=== PATIENT | female | born 1965 | race Caucasian/White ===

== ENCOUNTER 2021-01-10 14:20 | Outpatient (CLI) | payer OTHER ==
[2021-01-10 18:56] LABS: H. PYLORIS ANTIGEN STL NEGATIVE (Negative)
[2021-01-10 18:57] LABS: FECAL OCCULT BLOOD (FIT) POSITIVE (NEGATIVE)
== END 2021-01-10 23:59 | disposition home or self-care (01) ==
LOC: LAB.N 14:20
PROVIDERS: ATTEND Family Medicine
DX: R19.7 Diarrhea, unspecified (principal); Z20.822 Contact with and (suspected) exposure to COVID-19
CPT/HCPCS: 81599; 82274; 83993; 87045; 87046; 87177; 87209; 87329; 87338; 87427; 87493

== ENCOUNTER 2021-01-11 11:16 | Emergency (ER) | payer OTHER ==
--- NOTE | 2021-01-11 12:50 | ED Physician Documentation ---
History of Present Illness - Stated complaint Stated Complaint: ABD PX - Chief complaint Chief Complaint: Abd Pain - Additonal information Additional information: 55-year-old female presents the emergency department for evaluation of 6 days d iarrhea. She reports that it began suddenly. She reports extensive abdominal cramping. Some nausea but she has not had any vomiting. None of the diarrhea has been bloody or melanic. She reports that anytime she eats anything even simple rice or banana or drinks water she goes to the bathroom to have watery stool within minutes. She did take a dose of Imodium 3 days ago and reported that she went about 18 hours without diarrhea but she had fairly extensive abdominal cramps during that episode as well as body aches. She is not on a well. Denies similar in the family at home. No recent travel or sick contacts. No antibiotic use. She did go to walk-in clinic yesterday for the symptoms the did H pylori and C. difficile testing which was negative. The stool guaiac was however positive. No history of colonoscopy. Review of Systems Constitutional: denies: Fever, Chills Eyes: reports: Reviewed and negative Ears: reports: Reviewed and negative Nose: reports: Reviewed and negative Throat: reports: Reviewed and negative Cardiac: reports: Reviewed and negative Respiratory: reports: Reviewed and negative GI: reports: Abdominal Pain, Nausea, Diarrhea, Hematemesis. denies: Vomiting, Bloody / black stool : reports: Reviewed and negative Skin: reports: Reviewed and negative Musculoskeletal: reports: Reviewed and negative PD PAST MEDICAL HISTORY - Present Medications Home Medications: Ambulatory Orders Medication Instructions Recorded Confirmed Amox/Clav 875/125 [Augmentin] 1 each PO Q12H #14 tablet 01/11/21 Lactobacillus Acidophilus 2 each PO DAILY #60 01/11/21 [Acidophilus Lactobacilli] - Allergies Allergies/Adverse Reactions: Allergies Allergy/AdvReac Type Severity Reaction Status Date / Time No Known Drug Allergies Allergy Verified 01/11/21 11:24 PD ED PE EXPANDED - General General: Alert, No acute distress - Cardiac Cardiac: Regular Rate, Radial strong equal, Cap refill < 2 sec - Respiratory Respiratory: Clear to ausultation scottie. No: Distress, Labored - Abdomen Abdomen: Hyperactive BS (X 4 quadrants). No: Tender to palpation - Derm Derm: Normal color, Warm and dry - Extremities Extremities: Normal. No: Deformity, Tenderness - Neuro Neuro: Alert and Oriented X 3, CNII-XII intact - GCS Eye Opening: Spontaneous Motor: Obeys Commands Verbal: Oriented Total: 15 Results - Vitals Vitals: Vital Signs - 24 hr 01/11/21 01/11/21 01/11/21 11:19 12:56 14:00 Temperature 36.5 C 36.5 C 36.6 C Heart Rate 87 72 75 Respiratory 16 16 16 Rate Blood Pressure 137/83 H 150/90 H 131/77 H O2 Saturation 97 98 98 Oxygen O2 Source Room air - Labs Labs: Laboratory Tests 01/11/21 01/11/21 01/11/21 12:45 12:45 14:46 WBC 6.3 RBC 4.69 Hgb 14.7 Hct 44.3 MCV 94.5 MCH 31.3 H MCHC 33.2 RDW 12.3 Plt Count 354 MPV 9.7 Neut # (Auto) 3.3 Lymph # (Auto) 2.1 [place] # (Auto) 0.7 Eos # (Auto) 0.1 Baso # (Auto) 0.0 Absolute Nucleated RBC 0.00 Nucleated RBC % 0.0 Sodium 136 Potassium 3.8 Chloride 99 L Carbon Dioxide 25 Anion Gap 12.0 BUN 14 Creatinine 0.6 Estimated GFR (MDRD) 103 Glucose 94 Calcium 9.1 Total Bilirubin 1.4 H AST 19 ALT 14 Alkaline Phosphatase 52 Total Protein 8.1 Albumin 4.7 Globulin 3.4 Albumin/Globulin Ratio 1.4 Lipase 23 Urine Color YELLOW Urine Clarity CLEAR Urine pH 5.5 Ur Specific [place] <=1.005 Urine Protein NEGATIVE Urine Glucose (UA) NEGATIVE Urine Ketones TRACE Urine Occult Blood TRACE-INTA Urine Nitrite NEGATIVE Urine Bilirubin NEGATIVE Urine Urobilinogen 0.2 (NORMAL) Ur Leukocyte Esterase NEGATIVE Ur Microscopic Review NOT INDICATED Urine Culture Comments NOT INDICATED - Rads (name of study) CT abd Radiology: Final report received (Findings are consistent with acute colitis. There is involvement of the cecum and ascending colon and descending colon through the rectum without involvement of the transverse colon. Differential diagnosis includes inflammatory versus infectious colitis. Ischemic is less likely.) PD MEDICAL DECISION MAKING - ED course Complexity details: reviewed results, re-evaluated patient, d/w patient ED course: 55-year-old female presents to the emergency department with very rapid transit diarrhea for the last week. She has not had any fevers and no bloody output. There has been some intermittent control with the use of Imodium. No history of similar in the past. Seen at urgent care yesterday She had H. pylori and C. difficile testing completed which was negative. We do have a stool culture pending here in the emergency department today. Her Labs are without acute focal abnormalities. CT of the abdomen does show diffuse colitis of the cecum ascending and descending colon however no findings consistent with transverse colitis. Given history and exam it is not likely that this is an ischemic colitis. Infectious versus inflammatory causes were considered. I discussed the findings with the patient. She will be started on Augmentin with recommendation of taking lactobacillus daily. She is to follow-up closely with her primary care provider. She would benefit from outpatient colonoscopy given age. Emergent return precautions were discussed for worsening symptoms. Departure - Departure Disposition: Home, Self Care Clinical Impression: Colitis Diarrhea Qualifiers: Diarrhea type: unspecified type Qualified Code(s): R19.7 - Diarrhea, unspecified Condition: Stable Record reviewed to determine appropriate education?: Yes Prescriptions: Lactobacillus Acidophilus [Acidophilus Lactobacilli] 2 each PO DAILY #60 Amox/Clav 875/125 [Augmentin] 1 each PO Q12H #14 tablet Comments: Cherri ca were seen today in the ER for diarrhea. The C. difficile testing and H. pylori testing completed yesterday at the walk- in clinic were negative. We do have a routine school stool culture pending on you today. If there are any worsening findings you will be notified. Your labs today however are essentially normal. The CT of your abdomen shows diffuse colitis. This means inflammation of the tendon intestines. At this time I would like to treat you with a course of antibiotics in case a bacteria is causing the diarrhea. The antibiotics will kill all of the bacteria in your intestines including the healthy ones so please fill the prescription for the lactobacillus and take twice daily with your antibiotics. You may also benefit simply from eating a cup of [place] yogurt every day. Please discuss this ED visit with your primary care provider. Once your diarrhea resolves you should be referred for a colonoscopy. If at any point your symptoms are worsening, you have bloody stools, high fevers are become severely dehydrated please return to the ER for a second look.
[2021-01-11 12:55] LABS: BASOPHILS % (AUTO) 0.3 %; EOSINOPHILS # (AUTO) 0.1 10^3/uL (0.0-0.7); EOSINOPHILS % (AUTO) 1.3 %; HCT - HEMATOCRIT 44.3 % (37.0-47.0); HGB - HEMOGLOBIN 14.7 g/dL (12.0-16.0); LYMPHOCYTES # (AUTO) 2.1 10^3/uL (1.5-3.5); LYMPHOCYTES % (AUTO) 34.1 %; MEAN CORPUSCULAR HEMOGLOBIN 31.3 pg (27.0-31.0); MEAN CORPUSCULAR HGB CONC 33.2 g/dL (32.0-36.0); MEAN CORPUSCULAR VOLUME 94.5 fL (81.0-99.0); MEAN PLATELET VOLUME 9.7 fL (7.9-10.8); MONOCYTES # (AUTO) 0.7 10^3/uL (0.0-1.0); MONOCYTES % (AUTO) 11.3 %; NEUTROPHILS # (AUTO) 3.3 10^3/uL (1.5-6.6); NEUTROPHILS % (AUTO) 52.7 %; PLT - PLATELET COUNT 354 10^3/uL (130-450); RED BLOOD COUNT 4.69 10^6/uL (4.20-5.40); RED CELL DISTRIBUTION WIDTH 12.3 % (12.0-15.0); WHITE BLOOD COUNT 6.3 x10^3/uL (4.8-10.8)
[2021-01-11 13:07] LABS: ALBUMIN 4.7 g/dL (3.2-5.5); ALBUMIN/GLOBULIN RATIO 1.4 (1.0-2.2); BILIRUBIN,TOTAL 1.4 mg/dL (0.2-1.0); CALCIUM 9.1 mg/dL (8.5-10.3); CREATININE 0.6 mg/dL (0.4-1.0); POTASSIUM 3.8 mmol/L (3.5-5.0); TOTAL PROTEIN 8.1 g/dL (6.7-8.2)
[2021-01-11] MEDS ORDERED: SODIUM CHLORIDE 0.9% 1,000 ML IV STA (13:18)
[2021-01-11] MEDS ORDERED: IOVERSOL 320 100 ML VIAL IVP ONE ×2 (13:56→14:52)
--- NOTE | 2021-01-11 14:34 | CT Report ---
PROCEDURE: Abdomen/Pelvis W INDICATIONS: 6 days of diarrhea; heme + stool CONTRAST: IV CONTRAST: Optiray 320 ml: 100 PO CONTRAST: *NO PO CONTRAST TECHNIQUE: After the administration of contrast, 5 mm thick sections acquired from the diaphragms to the symphy sis. 5 mm thick coronal and sagittal reformats were acquired. For radiation dose reduction, the fol lowing was used: automated exposure control, adjustment of mA and/or kV according to patient size. COMPARISON: None. FINDINGS: Image quality: Excellent. ABDOMEN: Lung bases: Lung bases are clear. Heart size is normal. Solid organs: Liver and spleen are normal in size and enhancement. Gallbladder is unremarkable Tung iary system is non dilated. Pancreas enhances normally. No adrenal nodules. Kidneys demonstrate no rmal size and enhancement, without hydronephrosis. Peritoneum and bowel: Incidental note is made of the presence of a prominent duodenal diverticulum co ntaining air and gas. There is diffuse wall thickening and edema involving the cecum and ascending co jayde, with a relatively normal appearance of a gas-filled transverse colon. The descending colon throu gh the rectum all have diffuse wall thickening and edema. Colonic contents are liquid. No intramural gas. No free fluid or air. No abscess cavity. Nodes and vessels: No retroperitoneal or mesenteric adenopathy by size criteria. Aorta and inferior vena cava are normal in size. Incidental note is made of the presence of a dilated left gonadal vei n indicating reflux with left paraovarian varicosities. Miscellaneous: No ventral hernias. PELVIS: Genitourinary: Bladder wall thickness is normal. Miscellaneous: No inguinal hernias or adenopathy. Bones: No suspicious bony lesions. No vertebral body compression fractures. IMPRESSION: 1. Findings are consistent with acute colitis. Interestingly, there is involvement of the cecum and a scending colon and descending colon through the rectum without involvement of the transverse colon. D ifferential diagnosis includes inflammatory versus infectious colitis. Ischemic colitis is less likel y, based on the pattern.. Reviewed by: Lucius Pantoja MD on 01/11/2021 1:33 PM AKAUDREY Approved by: Lucius Pantoja MD on 01/11/2021 1:33 PM AKAUDREY Station ID: [id number]
[2021-01-11 15:02] LABS: BILIRUBIN,URINE NEGATIVE (NEGATIVE); GLUCOSE, URINE (UA) NEGATIVE (NEGATIVE); KETONES,URINE (UA) TRACE mg/dL (NEGATIVE); LEUKOCYTE ESTERASE, URINE NEGATIVE (NEGATIVE); NITRITE,URINE NEGATIVE (NEGATIVE); OCCULT BLOOD,URINE TRACE-INTA (NEGATIVE); PH,URINE 5.5 PH (5.0-7.5); PROTEIN,URINE NEGATIVE (NEGATIVE); UROBILINOGEN,URINE 0.2 (NORMAL) E.U./dL (NORMAL)
[2021-01-11 15:07] LABS: CLARITY,URINE CLEAR (CLEAR)
[2021-01-11 15:50] VITALS: BP 120/72
== END 2021-01-11 15:49 | disposition home or self-care (01) ==
LOC: ED 11:16
DX: K52.9 Noninfective gastroenteritis and colitis, unspecified (principal)
CPT/HCPCS: 36415; 74177; 80053; 81003; 81599; 83690; 85025; 96360; 96361; 99284; Q9967; 81001; 87045; 87046; 87086